=== PATIENT | female | born 1970 | race Caucasian/White ===

== ENCOUNTER 2017-08-06 13:33 | Emergency (ER) | payer OTHER ==
[~2017-08-06] VITALS: Ht 170.2 cm; Wt 106.6 kg
[~2017-08-06 13:33] MED LIST: AMITRIPTYLINE H50 MG PO; FLUOXETINE HCL20 MG PO; FOLBIC RF TABL1 EACH PO; METFORMIN HCL1000 MG PO; MINUS WEIGHT P1 EACH PO; OXYCODON-ACETA1 EAC2 PO; PERCOCET 7.5-31 EACH PO; VITAMIN D5000 UNIT PO
== END 2017-08-06 13:57 | disposition home or self-care (01) ==
LOC: ED 13:33
DX: S00.83XA Contusion of other part of head, initial encounter (principal); E11.9 Type 2 diabetes mellitus without complications; Z88.5 Allergy status to narcotic agent; Z79.84 Long term (current) use of oral hypoglycemic drugs; Z79.899 Other long term (current) drug therapy; W01.10XA Fall on same level from slipping, tripping and stumbling with subsequent striking against unspecified object, initial encounter
CPT/HCPCS: 99283